=== PATIENT | male | born 1950 | race Caucasian/White ===

== ENCOUNTER 2025-04-29 10:34 | Day surgery (SDC) | payer MEDICARE, OTHER ==
[2025-04-29] MEDS: Lidocaine 1% PF 2 ML SDV INJECT SCH (07:30)
[2025-04-29] MEDS: Tetracaine HCl/PF 0.5% 4 ML Bottle EYEBOTH SCH (07:30)
[2025-04-29] MEDS: Pilocarpine 4% Ophth Soln 15 ML Bot EYERT SCH (07:30)
[2025-04-29] MEDS: Cefuroxime 10 MG/ML SYRINGE EYERT SCH (07:30)
[2025-04-29] MEDS: Polymyxin B/Trimethoprim 10 ML Bottle EYERT SCH (07:31)
[2025-04-29] MEDS: Tropicamide 1% Ophth Soln 3 ML Bottle EYERT SCH (11:06)
== END 2025-04-29 12:44 | disposition home or self-care (01) ==
LOC: JD.SDS 10:34
PROVIDERS: ATTEND Ophthalmology
DX: E11.36 Type 2 diabetes mellitus with diabetic cataract (principal); H25.89 Other age-related cataract; H25.812 Combined forms of age-related cataract, left eye; H52.223 Regular astigmatism, bilateral; H52.03 Hypermetropia, bilateral; H52.4 Presbyopia; H21.81 Floppy iris syndrome; H16.223 Keratoconjunctivitis sicca, not specified as Sjogren's, bilateral; H16.103 Unspecified superficial keratitis, bilateral; H02.831 Dermatochalasis of right upper eyelid; H02.834 Dermatochalasis of left upper eyelid; H57.813 Brow ptosis, bilateral; I10 Essential (primary) hypertension; E78.00 Pure hypercholesterolemia, unspecified; Z79.84 Long term (current) use of oral hypoglycemic drugs; Z79.899 Other long term (current) drug therapy
CPT/HCPCS: A9270-GY; J0697; J3490